=== PATIENT | male | born 1995 | race Caucasian/White ===

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

== ENCOUNTER → 2017-01-30 | Outpatient (REF) | LOC: WSOH 16:06 | DX: Z02.89 Encounter for other administrative examinations (principal) ==

== ENCOUNTER → 2019-05-23 | Outpatient (CLI) | payer BC | LOC: COL.RAD 16:12 | DX: R06.02 Shortness of breath (principal) ==

== ENCOUNTER → 2019-06-02 | Outpatient (CLI) | payer BC | LOC: COL.PUL 12:37 | DX: R06.02 Shortness of breath (principal) ==

== ENCOUNTER 2020-02-06 14:35 | Emergency (ER) | payer BC ==
[~2020-02-06] VITALS: Ht 185.4 cm; Wt 84.1 kg
[2020-02-06 14:47] VITALS: BP 125/72; TEMP 98
[2020-02-06 16:20] VITALS: PULSE 69
== END 2020-02-06 16:20 | disposition home or self-care (01) ==
LOC: COL.ER 14:35
DX: S61.216A Laceration without foreign body of right little finger without damage to nail, initial encounter (principal); W26.0XXA Contact with knife, initial encounter; Y92.009 Unspecified place in unspecified non-institutional (private) residence as the place of occurrence of the external cause